=== PATIENT | male | born 1945 | race Caucasian/White ===

== ENCOUNTER 2018-02-14 14:00 | Inpatient (IN) | payer MEDICARE, OTHER ==
[~2018-02-14] VITALS: Ht 172.7 cm; Wt 81.4 kg
[2018-02-15 12:25] VITALS: BP 101/53; PULSE 93; TEMP 98.2
[2018-02-15] MEDS ORDERED: PRILOSEC 20MG20 MG PO (12:46)
[2018-02-15] MEDS ORDERED: ZOCOR 40MG40 MG PO (12:46)
[2018-02-15] MEDS ORDERED: HCTZ 25MG TAB25 MG PO (12:47)
[2018-02-15] MEDS ORDERED: AMARYL4 MG PO (12:48)
[2018-02-15] MEDS ORDERED: PRINIVIL5 MG PO (12:49)
[2018-02-15] MEDS ORDERED: GLUCOPHAGE1000 MG PO (12:50)
[2018-02-15] MEDS ORDERED: COREG 3.123.125 MG/T PO (12:50)
[2018-02-15] MEDS ORDERED: ZYLOPRIM 300MG300 MG PO (12:51)
[2018-02-15] MEDS ORDERED: ASPI325T6 PO (12:52)
[2018-02-15] MEDS ORDERED: METAMUCIL3.4 GM/DOS PO (12:55)
[2018-02-15] MEDS ORDERED: RT ALBUTER2.5 MG/0.5 IH (12:58)
[2018-02-15] MEDS ORDERED: IRON TABLETS325 MG PO (12:59)
[2018-02-15] MEDS ORDERED: BENADRYL25 M2 PO (12:59)
[2018-02-15] MEDS ORDERED: NORCO 325 MG-7.1 TAB PO (13:00)
[2018-02-15] MEDS ORDERED: XALATAN EYE DROPS OP (13:02)
[2018-02-15] MEDS ORDERED: GOOD NEIGH1200 MG/15 PO (13:04)
[2018-02-15] MEDS ORDERED: TIMOLOL MALEATE5 M1 OP (13:05)
[2018-02-15] MEDS ORDERED: TRIAMCINOLONE A15 GM TP (13:07)
[2018-02-15 16:33] VITALS: BP 106/54; PULSE 87; TEMP 98.5
[2018-02-16 05:26] VITALS: BP 112/61; PULSE 76; TEMP 98.5
[2018-02-16 14:27] VITALS: BP 108/53; PULSE 93; TEMP 98.3
[2018-02-17 05:21] VITALS: BP 115/60; PULSE 105; TEMP 98.7
[2018-02-17 18:41] VITALS: BP 120/62; PULSE 92; TEMP 98.5
[2018-02-18 05:21] VITALS: BP 126/70; PULSE 98; TEMP 98.8
[2018-02-18 15:26] VITALS: BP 96/47; PULSE 96; TEMP 98.4
[2018-02-19 06:27] VITALS: BP 118/72; PULSE 72; TEMP 98.4
[2018-02-19 07:39] LABS: BASO % 0.5 % (0.0-2.0); EOS # 0.2 (0.0-0.7); EOS % 2.6 % (0-4.0); GRAN # 5.6 (1.4-6.5); GRAN % 66.8 % (42.2-75.2); LYMPH # 1.7 (1.2-3.4); LYMPH % 19.9 % (20.0-51.0); MEAN CELL VOLUME 101 fl (80.0-100.0); MEAN CORPUSCULAR HEMOGLOBIN 33 pg (27.0-31.0); MEAN CORPUSCULAR HGB CONC 33 g/dl (33.0-37.0); MEAN PLATELET VOLUME 10.2 fl (7.4-10.4); MONO # 0.8 (0.1-0.6); MONO % 9.7 % (1.7-9.3); PLATELET COUNT 455 K/mm3 (130-400); RED BLOOD COUNT 3.32 M/mm3 (4.20-5.60); REDCELL DISTRIBUTION WIDTH-CV 15.1 % (11.5-14.5)
[2018-02-19 07:40] LABS: HEMATOCRIT 33.6 % (42.0-52.0)
[2018-02-19 07:42] LABS: CALCIUM 8.9 mg/dL (8.4-10.2); CREATININE, serum 0.71 mg/dL (0.66-1.25); MAGNESIUM 1.3 mg/dL (1.6-2.3); POTASSIUM 3.7 mmol/L (3.4-5.0)
[2018-02-19 15:42] VITALS: BP 108/53; PULSE 89; TEMP 98.4
[2018-02-20 05:51] VITALS: BP 123/59; PULSE 74; TEMP 98.1
[2018-02-20 15:52] VITALS: BP 111/61; PULSE 87; TEMP 98.1
[2018-02-21 04:50] VITALS: BP 109/63; PULSE 98; TEMP 97.9
[2018-02-21 07:19] LABS: CALCIUM 9.1 mg/dL (8.4-10.2); CREATININE, serum 0.61 mg/dL (0.66-1.25); MAGNESIUM 1.3 mg/dL (1.6-2.3)
[2018-02-21 15:48] VITALS: BP 107/46; PULSE 75; TEMP 98.8
[2018-02-22 05:57] VITALS: BP 113/65; PULSE 97; TEMP 98.3
[2018-02-22 14:54] VITALS: BP 88/48; PULSE 85; TEMP 98.1
[2018-02-22 20:47] VITALS: BP 116/54
[2018-02-23 05:56] VITALS: BP 114/58; PULSE 71; TEMP 98.4
[2018-02-23 15:32] VITALS: BP 91/44; PULSE 81; TEMP 98.1
[2018-02-24 06:26] VITALS: BP 125/61; PULSE 96; TEMP 97.6
[2018-02-24 17:33] VITALS: BP 102/48; PULSE 98; TEMP 98.7
[2018-02-25 05:28] VITALS: BP 111/62; PULSE 97; TEMP 98.6
[2018-02-25 16:04] VITALS: BP 108/49; PULSE 91; TEMP 98.3
[2018-02-26 04:53] VITALS: BP 106/60; PULSE 97; TEMP 98.3
[2018-02-26 07:40] LABS: CALCIUM 9.1 mg/dL (8.4-10.2); CREATININE, serum 0.61 mg/dL (0.66-1.25); MAGNESIUM 1.6 mg/dL (1.6-2.3); POTASSIUM 4.3 mmol/L (3.4-5.0)
[2018-02-26 14:52] VITALS: BP 103/54; PULSE 96; TEMP 98.3
[2018-02-27 05:45] VITALS: BP 117/61; PULSE 95; TEMP 97.2
[2018-02-27 17:13] VITALS: BP 112/52; PULSE 99; TEMP 99
[2018-02-28 06:00] VITALS: BP 119/61; PULSE 89; TEMP 97.8
[2018-02-28 14:55] VITALS: BP 110/54; PULSE 88; TEMP 98.4
[2018-03-01 04:54] VITALS: BP 121/68; PULSE 86; TEMP 97.8
[2018-03-01 15:22] VITALS: BP 111/54; PULSE 95; TEMP 98.2
[2018-03-02 05:38] VITALS: BP 120/65; PULSE 80; TEMP 98.1
[2018-03-02 17:00] VITALS: BP 96/52; PULSE 88; TEMP 98
[2018-03-03 05:22] VITALS: BP 105/56; PULSE 92; TEMP 98.5
[2018-03-03 18:56] VITALS: BP 109/48; PULSE 84; TEMP 98.2
[2018-03-04 06:00] VITALS: BP 115/63; PULSE 100; TEMP 97.7
[2018-03-04 15:55] VITALS: BP 117/55; PULSE 98; TEMP 98
[2018-03-05 05:22] VITALS: BP 104/58; PULSE 85; TEMP 98.4
[2018-03-05 15:32] VITALS: BP 114/50; PULSE 73; TEMP 98
[2018-03-06 05:24] VITALS: BP 113/62; PULSE 93; TEMP 98.1
[2018-03-06 15:15] VITALS: BP 111/52; PULSE 104; TEMP 98.3
[2018-03-07 05:38] VITALS: BP 119/67; PULSE 102; TEMP 98.1
[2018-03-07 18:15] VITALS: BP 131/55; PULSE 90; TEMP 98.4
[2018-03-08 04:59] VITALS: BP 117/60; PULSE 92; TEMP 98.4
[2018-03-08 06:21] LABS: BASO % 0.5 % (0.0-2.0); EOS # 0.5 (0.0-0.7); EOS % 5.5 % (0-4.0); GRAN % 57.7 % (42.2-75.2); LYMPH # 2.2 (1.2-3.4); LYMPH % 25.1 % (20.0-51.0); MEAN CELL VOLUME 101 fl (80.0-100.0); MEAN CORPUSCULAR HEMOGLOBIN 32 pg (27.0-31.0); MEAN CORPUSCULAR HGB CONC 32 g/dl (33.0-37.0); MEAN PLATELET VOLUME 10.6 fl (7.4-10.4); MONO % 10.9 % (1.7-9.3); PLATELET COUNT 273 K/mm3 (130-400); REDCELL DISTRIBUTION WIDTH-CV 14.4 % (11.5-14.5)
[2018-03-08 06:27] LABS: HEMATOCRIT 34.2 % (42.0-52.0)
[2018-03-08 06:37] LABS: CALCIUM 9.3 mg/dL (8.4-10.2); CREATININE, serum 0.57 mg/dL (0.66-1.25); MAGNESIUM 1.5 mg/dL (1.6-2.3); POTASSIUM 4.1 mmol/L (3.4-5.0)
[2018-03-08 18:00] VITALS: BP 108/49; PULSE 85; TEMP 98.5
[2018-03-09 05:31] VITALS: BP 121/62; PULSE 92; TEMP 98.4
[2018-03-09] MEDS ORDERED: Patient's Own Medica PO (08:13)
[2018-03-09] MEDS ORDERED: GLUCOPHAGE500 MG/TAB PO (08:13)
[2018-03-09] MEDS ORDERED: TYLENOL 325MG325 MG PO (08:14)
[2018-03-09] MEDS ORDERED: FLOMAX 0.40.4 MG/CAP PO (08:15)
[2018-03-09] MEDS ORDERED: ZESTRIL2.5 MG PO (08:15)
[2018-03-09] MEDS ORDERED: VOLTAREN GEL 1%1 TU TP (08:15)
[2018-03-09] MEDS ORDERED: ULTRAM 50MG TAB50 MG PO (08:16)
[2018-03-09] MEDS ORDERED: ZYRTEC 10MG10 MG PO (08:16)
[2018-03-09] MEDS ORDERED: MAG-OX 400400 MG/TAB PO (08:17)
== END 2018-03-09 14:37 | disposition home health service (06) | DRG 560 ==
PROVIDERS: Internal Medicine
DX: Z47.81 Encounter for orthopedic aftercare following surgical amputation (principal); N13.8 Other obstructive and reflux uropathy; Z89.512 Acquired absence of left leg below knee; I10 Essential (primary) hypertension; E11.9 Type 2 diabetes mellitus without complications; D64.9 Anemia, unspecified; E83.42 Hypomagnesemia
CPT/HCPCS: 99222-AI; 99232-AI; 99239; J1815

== ENCOUNTER 2022-06-03 15:31 | Emergency (ER) | payer MEDICARE, OTHER ==
[~2022-06-03] VITALS: Ht 175.3 cm; Wt 84.1 kg
[~2022-06-03 15:31] MED LIST: AMARYL4 MG PO; ASPI325T6 PO; BENADRYL25 M2 PO; COREG 3.123.125 MG/T PO; FLOMAX 0.40.4 MG/CAP PO; GLUCOPHAGE1000 MG PO; GLUCOPHAGE500 MG/TAB PO; GOOD NEIGH1200 MG/15 PO; HCTZ 25MG TAB25 MG PO; IRON TABLETS325 MG PO; MAG-OX 400400 MG/TAB PO; METAMUCIL3.4 GM/DOS PO; NORCO 325 MG-7.1 TAB PO; PRILOSEC 20MG20 MG PO; PRINIVIL5 MG PO; Patient's Own Medica PO; RT ALBUTER2.5 MG/0.5 IH; TIMOLOL MALEATE5 M1 OP; TRIAMCINOLONE A15 GM TP; TYLENOL 325MG325 MG PO; ULTRAM 50MG TAB50 MG PO; VOLTAREN GEL 1%1 TU TP; XALATAN EYE DROPS OP; ZESTRIL2.5 MG PO; ZOCOR 40MG40 MG PO; ZYLOPRIM 300MG300 MG PO; ZYRTEC 10MG10 MG PO
[2022-06-03 15:50] VITALS: TEMP 98.3
[2022-06-03 16:29] LABS: BASO # 0.1 K/mm3 (0.0-0.2); BASO % 0.8 % (0.0-2.0); EOS # 0.6 K/mm3 (0.0-0.7); EOS % 8.1 % (0.0-4.0); GRAN # 4.3 K/mm3 (1.4-6.5); GRAN % 54.7 % (42.2-75.2); LYMPH % 24.7 % (20.0-51.0); MEAN CELL VOLUME 82 fl (80.0-100.0); MEAN CORPUSCULAR HGB CONC 29 g/dl (33.0-37.0); MEAN PLATELET VOLUME 10.4 fl (7.4-10.4); MONO # 0.9 K/mm3 (0.1-0.6); MONO % 11.3 % (1.7-9.3); PLATELET COUNT 313 K/mm3 (130-400); RED BLOOD COUNT 3.35 M/mm3 (4.20-5.60); REDCELL DISTRIBUTION WIDTH-CV 18.2 % (11.5-14.5)
[2022-06-03 16:33] LABS: HEMATOCRIT 27.5 % (42.0-52.0); HEMOGLOBIN 7.9 g/dl (13.5-18.0); MEAN CORPUSCULAR HEMOGLOBIN 24 pg (27-31)
[2022-06-03 16:37] LABS: INR 1.2 (0.8-3.0)
[2022-06-03 16:40] LABS: PARTIAL THROMBOPLASTIN TIME 32.9 SECONDS (26.0-37.0)
[2022-06-03 16:51] LABS: ALBUMIN 3.1 gm/dL (3.4-4.8); BILIRUBIN,TOTAL 0.8 mg/dL (0.2-1.2); CALCIUM 9.3 mg/dL (8.4-10.2); CREATININE, serum 0.89 mg/dL (0.72-1.25); POTASSIUM 5.2 mmol/L (3.5-4.5); TOTAL PROTEIN 7.5 gm/dL (6.2-8.1)
[2022-06-03 17:02] LABS: TROPONIN-I 0.411 ng/mL (0.00-0.033)
[2022-06-03 19:02] VITALS: BP 121/66; PULSE 90
== END 2022-06-03 19:25 | disposition short-term general hospital (02) ==
LOC: COL.ER 15:31
PROVIDERS: Emergency Medicine
DX: I21.4 Non-ST elevation (NSTEMI) myocardial infarction (principal); E87.5 Hyperkalemia; J81.1 Chronic pulmonary edema; R06.89 Other abnormalities of breathing; R09.89 Other specified symptoms and signs involving the circulatory and respiratory systems; Z95.1 Presence of aortocoronary bypass graft; Z20.822 Contact with and (suspected) exposure to COVID-19
CPT/HCPCS: J0610; J1644; J1815; J1940

== ENCOUNTER → 2022-07-20 | Outpatient (CLI) | payer MEDICARE, OTHER ==
[~2022-07-20] MED LIST changes: +ALBUTEROL0.83 MG/ML IH; +ALDACTONE 25MG25 M1 PO; +ASPIRIN 81M81 MG/TA2 PO; +CIPRO 500MG TA500 MG PO; +CONSTULOSE 20G/30ML PO; +LASIX 40MG TABL40 MG PO; +LEADER CLE17 GM/Dose PO; +PROTONIX 40MG T40 MG PO
== END ==
LOC: COL.RAD 13:33
DX: J90 Pleural effusion, not elsewhere classified (principal)